=== PATIENT | female | born 2000 | race Caucasian/White ===

== ENCOUNTER 2020-09-27 02:12 | Emergency (ER) | payer SELFPAY ==
[~2020-09-27] VITALS: Ht 154.9 cm; Wt 63.0 kg
[2020-09-27 02:15] VITALS: BP 117/74
--- NOTE | 2020-09-27 02:15 | NUR ---
TO [facility] WITH [facility] OFFICERS FOR PREBOOK.
--- NOTE | 2020-09-27 02:25 | NUR ---
PT MOVED TO BED #9
--- NOTE | 2020-09-27 02:30 | NUR ---
Patient being evaluated by physician at bedside.
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
--- NOTE | 2020-09-27 03:20 | NUR ---
LOU Valle spoke with patient about CT with IV contrast. Verbal consent obtained from patient.
--- NOTE | 2020-09-27 03:40 | NUR ---
patient to CT via wheelchair
--- NOTE | 2020-09-27 05:07 | NUR ---
patient is released by [facility] by officer Melanie #[id number]
--- NOTE | 2020-09-27 05:33 | NUR ---
ERMD at bedside to re-examin patient.
--- NOTE | 2020-09-27 05:35 | NUR ---
LOU [address] testing patient. Patient tolerated well. Allowed patient to ambulate to the bathroom
[2020-09-27 05:42] VITALS: BP 97/56
--- NOTE | 2020-09-27 05:56 | NUR ---
Patient does not wish to proceed with medical care recommended by LOU Valle. Patient given information related to possible complications, up to and including , which could occur as a result of leaving hospital at this time. Patient verbalizes understanding of risks involved leaving against medical advice. Patient has signed AMA form.
== END 2020-09-27 05:55 | disposition left against medical advice (07) ==
LOC: MED 02:12
DX: S60.812A Abrasion of left wrist, initial encounter (principal); S15.101A Unspecified injury of right vertebral artery, initial encounter; V49.9XXA Car occupant (driver) (passenger) injured in unspecified traffic accident, initial encounter; Y93.89 Activity, other specified; Y92.89 Other specified places as the place of occurrence of the external cause; Y99.8 Other external cause status
CPT/HCPCS: 70498; 73110; 99285; Q9967